=== PATIENT | male | born 1975 | race Caucasian/White ===

== ENCOUNTER 2018-03-15 01:34 | Emergency (ER) | payer OTHER ==
[~2018-03-15] VITALS: Ht 175.3 cm; Wt 104.5 kg
[2018-03-15 03:08] VITALS: BP 150/76
== END 2018-03-15 03:08 | disposition home or self-care (01) ==
LOC: EME 01:34
DX: S83.91XA Sprain of unspecified site of right knee, initial encounter (principal); X58.XXXA Exposure to other specified factors, initial encounter; Y99.0 Civilian activity done for income or pay
CPT/HCPCS: 73564; 99281; 99284